=== PATIENT | male | born 1965 | race Two or more races ===

== ENCOUNTER 2021-03-20 17:17 | Inpatient (IN) | payer MEDICAID ==
[~2021-03-20] VITALS: Ht 175.3 cm; Wt 105.7 kg
[2021-03-20] MEDS ORDERED: LISI20TA28 PO (20:47)
[2021-03-20 20:48] VITALS: BP 129/85
[2021-03-20] MEDS ORDERED: PRAV20TA4 PO (20:49)
[2021-03-20] MEDS ORDERED: WARF-55 PO (20:50)
[2021-03-20] MEDS ORDERED: NIFE10CA2 PO (20:50)
[2021-03-20] MEDS ORDERED: CARV25TA56 PO (20:51)
[2021-03-20] MEDS ORDERED: DULO60CA65 PO (20:51)
[2021-03-20] MEDS ORDERED: PANT-47 PO (20:52)
[2021-03-20] MEDS ORDERED: FURO-149 PO (20:52)
[2021-03-20] MEDS ORDERED: HALO5TAB PO (20:53)
[2021-03-20] MEDS ORDERED: POTA-208 PO ×2 (20:55)
--- NOTE | 2021-03-20 22:09 | NUR ---
Nursing Admission Note The patient is a 55 year old male who was admitted on a 5150 hold for being a danger to self. He originally self presented to [facility] requesting help and then pulled out a drink box mechanic and held it to his throat threatening suicide. The patient reports increased despair and hopelessness with suicidal thoughts for the past several days. He also reports command auditory hallucinations to kill himself. When asked about current stressors he reported that he found the paranoia unbearable. He stated that he believes the cartel is after him "Because I snitched on them" He reports visual hallucinations of shadows and believes he sees cameras. He believes his home is bugged. The patient is currently under the psychiatric care of Dr. Llamas out of [place]. He lives with his and 3 children. 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 He has a history of suicide attempt by cutting his throat. Medical problems include chronic bilateral knee pain, HTN and cardiac issues including history of a mitral valve replacement. He is on Warfarin for DVT left leg.
[2021-03-20] MEDS ORDERED: OLAN15TA3 PO (22:20)
[2021-03-20] MEDS ORDERED: OLAN10TA3 PO (22:21)
[2021-03-20] MEDS: carVEDilol 12.5mg tablet PO SCH (22:25)
[2021-03-20] MEDS ORDERED: OLANZapine 2.5MG tablet PO ONE (22:25)
[2021-03-20] MEDS: haloperidol 5mg tablet PO SCH (22:26)
[2021-03-20] MEDS: lisinopril 20mg tablet PO SCH (22:26)
[2021-03-21] MEDS ORDERED: diphenhydrAMINE 25mg capsule PO ONE (00:30)
[2021-03-21] MEDS ORDERED: traZODone 50mg tablet PO ONE ×3 (00:30→21:55)
[2021-03-21 08:16] VITALS: BP 123/73
[2021-03-21] MEDS: furosemide 40mg tablet PO SCH (08:23)
[2021-03-21] MEDS: olanzapine 10mg tablet PO SCH (08:23)
[2021-03-21] MEDS: duloxetine 30mg CAPSULE.DR PO SCH (08:23)
[2021-03-21] MEDS: carVEDilol 12.5mg tablet PO SCH ×2 (08:24→21:09)
[2021-03-21] MEDS: haloperidol 5mg tablet PO SCH ×2 (08:24→21:09)
[2021-03-21] MEDS: pantoprazole 40mg Tablet.DR PO SCH (08:24)
[2021-03-21] MEDS: potassium Cl 20 mEq SR tablet PO SCH ×3 (08:24→21:08)
[2021-03-21] MEDS: NIFEdipine XL 30mg tablet PO SCH (08:24)
[2021-03-21 08:44] LABS: BASOPHILS # (AUTO) 0.1 X10'3 (0-0.2); EOSINOPHILS # (AUTO) 0.2 X10'3 (0-0.9); EOSINOPHILS % (AUTO) 2.5 % (0-6); HEMATOCRIT 36.9 % (42.0-52.0); LYMPHOCYTES # (AUTO) 2.9 X10'3 (1.1-4.8); LYMPHOCYTES % (AUTO) 36.8 % (21-51); MEAN CORPUSCULAR HEMOGLOBIN 32.6 PG (27.0-31.0); MEAN CORPUSCULAR HGB CONC 35.2 g/dL (33.0-36.5); MEAN CORPUSCULAR VOLUME 92.6 FL (78-98); MEAN PLATELET VOLUME 7.9 FL (7.4-10.4); MONOCYTES # (AUTO) 0.8 X10'3 (0-0.9); MONOCYTES % (AUTO) 10.2 % (2-12); NEUTROPHILS # (AUTO) 3.9 X10'3 (1.8-7.7); NEUTROPHILS % (AUTO) 49.5 % (42-75); PLATELET COUNT 248 X10'3 (140-440); RED BLOOD COUNT 3.98 X10'6 (4.70-6.10); RED CELL DISTRIBUTION WIDTH 12.6 % (11.5-14.5); WHITE BLOOD COUNT 7.9 X10'3 (4.5-11.0)
--- NOTE | 2021-03-21 11:57 | NUR ---
: Joan (burkinan speaking): Son: Bishnu:
--- NOTE | 2021-03-21 16:02 | NUR ---
Nursing Progress Note: TONG Legal hold: 5150 Expires 03/23 @ 2017 Client on involuntary status for DTS. Report received from NILSA Tillman with use of SBAR. Why are they here: Pt self-presented to [facility] requesting help and then pulled out a box storage worker and held it to his throat threatening suicide. Pt reports increased despair and hopelessness with suicidal thoughts for the past several days. Pt reports CAH to kill himself. When asked about current stressors he reported that he found the paranoia unbearable. He stated that he believes the cartel is after him "Because I snitched on them" Pt reports visual hallucinations of shadows and believes he sees cameras. He believes his home is bugged. Assessment What has happened this shift: Received patient sleeping at shift change, respirations even and unlabored. Pt woke before breakfast and was compliant with 1:1 assessment and medication. Pt reports feeling depressed. I get like this in the winter. This year is worse. Pt presents guarded and does not elaborate. Pt minimizes his symptoms. Pt reports last BM three days ago, prune juice administered with effect. Pt denies A/VH, suicidal and homicidal thoughts. Pt is focused on when he is discharged. Screen Printing Inspector explained he was on a 72-hour hold. Current PT 28.1 INR 2.8 (03/21). AM blood sugar was 103. S/I, H/I: Pt currently denies. A/VH: Pt currently denies. Sleep: 3.25 hours ADL's: Independent Group attendance: No scheduled groups today. Were meds taken: Yes, without issue Any med S/E: None reported observed. Mental Status Exam Appearance: Clean, neat tall man, bushy mustache. Dressed in green unit scrubs and ball cap. Eye contact: Fair Behavior: Isolates to self, cooperative, quiet. Watched T.V or stayed in his room. Speech: Quiet, clear, latent response Mood: Depressed. Affect: Congruent with mood. Thought process: Depressed. Thought Content: Asking about discharge. Cognition: A&Ox3 Insight: Poor Judgment: Poor. Interventions PRN's used: None Therapeutic interventions: Maintained therapeutic milieu, active listening with therapeutic conversation when possible, medication administration/monitoring, bowel management, Q15 min safety checks. Restraints/seclusion/emergency medication: N/A Justification of Continued Inpatient Treatment: Patient reports increased despair and hopelessness with suicidal thoughts. Pt requires interruption of current crisis with medication adjustment in a therapeutic milieu.
[2021-03-21 19:48] VITALS: BP 121/83
[2021-03-21] MEDS ORDERED: warfarin 5mg tablet PO SCH (21:00)
[2021-03-21] MEDS: OLANZAPINE 5 MG TABLET PO SCH (21:07)
[2021-03-21] MEDS: lisinopril 20mg tablet PO SCH (21:08)
[2021-03-21] MEDS: pravastatin 40mg tablet PO SCH (21:10)
--- NOTE | 2021-03-22 01:56 | NUR ---
Nursing Progress Note: Legal hold: 5150 Expires 03/23 @ 2017 Client on involuntary status for DTS. Report received from NILSA Sheets with use of SBAR. 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 Pt reports increased despair and hopelessness with suicidal thoughts for the past several days. Pt reports CAH to kill himself. When asked about current stressors he reported that he found the paranoia unbearable. He stated that he believes the cartel is after him "Because I snitched on them" Pt reports visual hallucinations of shadows and believes he sees cameras. He believes his home is bugged. Assessment What has happened this shift: Pt up on unit at start of shift. Requested to shave, supervised by staff. Pt took a phone call from his . Pt affect blunted, speech slow and at times halting. Admits that he was hearing voices when admitted but says he is not at this time But he still is thinking about suicide. He says he no longer has a plan. His plan was to slit his throat which he did in the past. Pt concerned about being able to sleep. Order for Trazodone with one time repeat obtained pt did not require second dose. S/I, H/I: Pt currently denies. A/VH: Pt currently denies. Sleep: asleep at this time ADL's: Independent Group attendance: No scheduled groups today. Were meds taken: Yes, without issue Any med S/E: None reported observed. Mental Status Exam Appearance: man, mustache. Dressed in green scrubs and ball cap. Eye contact: Fair Behavior: Isolates to self, cooperative, quiet. Watched T.V or stayed in his room. Speech: Quiet, clear, slow response Mood: Depressed. Affect: Congruent with mood. Thought process: linear Thought Content: getting needs met Cognition: A&Ox3 Insight: Poor Judgment: Poor. Interventions PRN's used: None Therapeutic interventions: Maintained therapeutic milieu, active listening with therapeutic conversation when possible, medication administration/monitoring, bowel management, Q15 min safety checks. Restraints/seclusion/emergency medication: N/A Justification of Continued Inpatient Treatment: Patient reports increased despair and hopelessness with suicidal thoughts. Pt requires interruption of current crisis with medication adjustment in a therapeutic milieu.
[2021-03-22 07:47] VITALS: BP 134/89
[2021-03-22 08:55] LABS: ALANINE AMINOTRANSFERASE 19 U/L (12-78); ALBUMIN/GLOBULIN RATIO 0.7 (1.1-1.5); ALKALINE PHOSPHATASE 98 IU/L (46-116); ANION GAP 9 (8-16); ASPARTATE AMINO TRANSFERASE 13 U/L (10-37); BILIRUBIN,TOTAL 0.5 MG/DL (0.1-1.0); BLOOD UREA NITROGEN 13 MG/DL (7-18); BUN/CREATININE RATIO 15.3 (5.4-32.0); CALCIUM 8.4 MG/DL (8.5-10.1); CHLORIDE 109 MMOL/L (99-107); CREATININE 0.85 MG/DL (0.60-1.10); GLUCOSE 101 MG/DL (70-104); POTASSIUM 3.5 MMOL/L (3.5-5.1); SODIUM 147 MMOL/L (135-145); TOTAL CARBON DIOXIDE 28.7 MMOL/L (24-32); TOTAL PROTEIN 7.6 G/DL (6.4-8.2); eGFR > 90 ML/MIN
[2021-03-22] MEDS: duloxetine 30mg CAPSULE.DR PO SCH (09:14)
[2021-03-22] MEDS: pantoprazole 40mg Tablet.DR PO SCH (09:14)
[2021-03-22] MEDS: olanzapine 10mg tablet PO SCH (09:14)
[2021-03-22] MEDS: NIFEdipine XL 30mg tablet PO SCH (09:14)
[2021-03-22] MEDS: potassium Cl 20 mEq SR tablet PO SCH ×3 (09:14→20:18)
[2021-03-22] MEDS: carVEDilol 12.5mg tablet PO SCH ×2 (09:15→20:17)
[2021-03-22] MEDS: furosemide 40mg tablet PO SCH (09:15)
[2021-03-22] MEDS: haloperidol 5mg tablet PO SCH ×2 (09:15→20:19)
[2021-03-22 13:52] LABS: BASOPHILS % (AUTO) 0.4 % (0-1); EOSINOPHILS # (AUTO) 0.1 X10'3 (0-0.9); EOSINOPHILS % (AUTO) 2.5 % (0-6); HEMOGLOBIN 13.7 g/dl (14.0-17.9); LYMPHOCYTES # (AUTO) 2.3 X10'3 (1.1-4.8); MEAN CORPUSCULAR HEMOGLOBIN 32.4 PG (27.0-31.0); MEAN CORPUSCULAR VOLUME 92.6 FL (78-98); MEAN PLATELET VOLUME 8.4 FL (7.4-10.4); MONOCYTES # (AUTO) 0.5 X10'3 (0-0.9); MONOCYTES % (AUTO) 8.5 % (2-12); NEUTROPHILS # (AUTO) 2.6 X10'3 (1.8-7.7); NEUTROPHILS % (AUTO) 47.6 % (42-75); PLATELET COUNT 266 X10'3 (140-440); RED BLOOD COUNT 4.21 X10'6 (4.70-6.10); RED CELL DISTRIBUTION WIDTH 12.7 % (11.5-14.5); WHITE BLOOD COUNT 5.6 X10'3 (4.5-11.0)
--- NOTE | 2021-03-22 16:31 | NUR ---
Nursing Progress Note: TONG Legal hold: 5150 Client on involuntary status for DTS. Report received from NILSA Tillman with use of SBAR. Why are they here: Pt self-presented to [facility] requesting help and then pulled out a box packer and held it to his throat threatening suicide. Pt reports increased despair and hopelessness with suicidal thoughts for the past several days. Pt reports CAH to kill himself. When asked about current stressors he reported that he found the paranoia unbearable. He stated that he believes the cartel is after him "Because I snitched on them" Pt reports visual hallucinations of shadows and believes he sees cameras. He believes his home is bugged. Assessment What has happened this shift: Observed pt sleeping prior to breakfast. Pt prompted to get up for meals and snacks. Pt isolates to his room sleeping most of the day. Pt reports his voices were getting bad so he brought himself to the hospital. Pt shared he sees a psychiatrist in [address] PT 19.3, INR 1.9. S/I, H/I: denies. A/VH: endorses Sleep: Isolates in bed most of the shift ADL's: Independent Group attendance: N/A Were meds taken: Yes Any med S/E: None noted or reported Mental Status Exam Appearance: Clean, tall man with mustache. Dressed in green unit scrubs and blue ball cap. Eye contact: Fair Behavior: Isolates to self Speech: Clear, delayed responses Mood: "I don't know." Affect: Congruent with mood Thought process: Depressed Thought Content: no reponse Cognition: A&Ox3 Insight: Poor Judgment: Poor. Interventions PRN's used: None Therapeutic interventions: Provided 1:1 assessment with therapeutic communication and active listening, medication administration/monitoring, encouraged pt to exercise and socialize, Q15 min safety checks. Restraints/seclusion/emergency medication: N/A Justification of Continued Inpatient Treatment: Patient reports increased despair and hopelessness with suicidal thoughts. Pt requires interruption of current crisis with medication adjustment in a therapeutic milieu.
[2021-03-22] MEDS: OLANZAPINE 5 MG TABLET PO SCH (20:18)
[2021-03-22] MEDS: pravastatin 40mg tablet PO SCH (20:18)
[2021-03-22 20:28] VITALS: BP 110/74
[2021-03-22] MEDS: lisinopril 20mg tablet PO SCH (20:46)
[2021-03-22] MEDS ORDERED: warfarin 3mg tablet PO ONE (21:00)
--- NOTE | 2021-03-22 21:35 | NUR ---
Nursing Progress Note: TONG Legal hold: 5150 Client on involuntary status for DTS. Report received from NILSA Johnson with use of SBAR. Why are they here: Pt self-presented to [facility] requesting help and then pulled out a box press operator and held it to his throat threatening suicide. Pt reports increased despair and hopelessness with suicidal thoughts for the past several days. Pt reports CAH to kill himself. When asked about current stressors he reported that he found the paranoia unbearable. He stated that he believes the cartel is after him "Because I snitched on them" Pt reports visual hallucinations of shadows and believes he sees cameras. He believes his home is bugged. Assessment What has happened this shift: Pt was in his room at change of shift resting in bed. Pt reports he is here because he was suicidal and hearing CAH telling him to hurt himself. Pt state he is no longer hearing voices. Pt was up in the [place] and had snack but isolates to his room for most of the evening. PT 19.3, INR 1.9. S/I, H/I: denies. A/VH: "not right now" Sleep: Isolates in bed most of the shift ADL's: Independent Group attendance: N/A Were meds taken: Yes Any med S/E: None noted or reported Mental Status Exam Appearance: Clean, tall man with mustache. Dressed in green unit scrubs and blue ball cap. Eye contact: Fair Behavior: Isolates to self Speech: Clear, delayed responses Mood: Depressed Affect: constricted Thought process: Depressed Thought Content: thought blocking, linear Cognition: A&Ox3 Insight: Poor Judgment: Poor. Interventions PRN's used: None Therapeutic interventions: Provided 1:1 assessment with therapeutic communication and active listening, medication administration/monitoring, encouraged pt to exercise and socialize, Q15 min safety checks. Restraints/seclusion/emergency medication: N/A Justification of Continued Inpatient Treatment: Patient reports increased despair and hopelessness with suicidal thoughts. Pt requires interruption of current crisis with medication adjustment in a therapeutic milieu.
[2021-03-22] MEDS ORDERED: traZODone 50mg tablet PO PRN (22:45)
[2021-03-23 07:51] VITALS: BP 152/88
[2021-03-23] MEDS: haloperidol 5mg tablet PO SCH (08:00)
[2021-03-23] MEDS: pantoprazole 40mg Tablet.DR PO SCH (08:01)
[2021-03-23] MEDS: NIFEdipine XL 30mg tablet PO SCH (08:01)
[2021-03-23] MEDS: potassium Cl 20 mEq SR tablet PO SCH ×2 (08:01→12:45)
[2021-03-23] MEDS: furosemide 40mg tablet PO SCH (08:01)
[2021-03-23] MEDS: carVEDilol 12.5mg tablet PO SCH (08:01)
[2021-03-23] MEDS: olanzapine 10mg tablet PO SCH (08:02)
[2021-03-23] MEDS: duloxetine 30mg CAPSULE.DR PO SCH (08:02)
[2021-03-23 08:50] LABS: ALANINE AMINOTRANSFERASE 18 U/L (12-78); ALBUMIN 2.8 G/DL (3.4-5.0); ALBUMIN/GLOBULIN RATIO 0.7 (1.1-1.5); ALKALINE PHOSPHATASE 91 IU/L (46-116); ANION GAP 8 (8-16); ASPARTATE AMINO TRANSFERASE 11 U/L (10-37); BILIRUBIN,TOTAL 0.3 MG/DL (0.1-1.0); BLOOD UREA NITROGEN 14 MG/DL (7-18); BUN/CREATININE RATIO 17.1 (5.4-32.0); CHLORIDE 106 MMOL/L (99-107); CREATININE 0.82 MG/DL (0.60-1.10); GLUCOSE 90 MG/DL (70-104); POTASSIUM 3.2 MMOL/L (3.5-5.1); SODIUM 142 MMOL/L (135-145); TOTAL CARBON DIOXIDE 27.9 MMOL/L (24-32); TOTAL PROTEIN 7.1 G/DL (6.4-8.2); eGFR > 90 ML/MIN
--- NOTE | 2021-03-23 16:45 | NUR ---
DISCHARGE NOTE: Pt. discharged to home, driven by son in car. Pt. Discharged with medications, belongings and valuables. Pt. verbalizes understanding of discharge plan and home medication regimen. Pt. signed all discharge paperwork. Pt. to make f/u appointment with his out-patient providers. Pt. is A&O to self only. Pt. denies SI/HI. Pt. endorses A/V hallucinations but will not disclose what the hallucinations are. Pt. is calm and cooperative and in no apparent physical or emotional distress. RN went over safety planning and pt. verbalized understanding of emergency phone numbers and to call 911 if feeling unsafe.
[2021-03-23] MEDS ORDERED: warfarin 3mg tablet PO ONE (21:00)
== END 2021-03-23 16:45 | disposition home or self-care (01) | DRG 751 ==
LOC: ADULT MH 19:59
PROVIDERS: ADMIT Psychiatry & Neurology Neurology with Special Qualifications in Child Neurology; ATTEND Psychiatry & Neurology Neurology with Special Qualifications in Child Neurology
DX: F32.3 Major depressive disorder, single episode, severe with psychotic features (principal); R45.851 Suicidal ideations; E78.5 Hyperlipidemia, unspecified; R60.0 Localized edema; G47.33 Obstructive sleep apnea (adult) (pediatric); I10 Essential (primary) hypertension; F17.210 Nicotine dependence, cigarettes, uncomplicated; Z79.01 Long term (current) use of anticoagulants; Z95.2 Presence of prosthetic heart valve; Z71.6 Tobacco abuse counseling; Z79.899 Other long term (current) drug therapy
CPT/HCPCS: 36415; 80053; 82948; 85025; 85610; 87081; Q0163